=== PATIENT | male | born 1950 | race Caucasian/White ===

== ENCOUNTER 2017-09-08 21:01 | Emergency (ER) | payer MEDICARE, MEDICAID ==
[~2017-09-08] VITALS: Ht 160 cm; Wt 91.6 kg
[2017-09-08 21:35] LABS: BASOPHILS # (AUTO) 0.1 K/uL (0.0-8.0); BASOPHILS % (AUTO) 1.5 % (0.0-2.0); EOSINOPHILS % (AUTO) 0.5 % (0.0-7.0); HEMATOCRIT 32.5 % (36.7-47.1); HEMOGLOBIN 10.5 g/dL (12.5-16.3); LYMPHOCYTES # (AUTO) 0.8 K/uL (20.0-40.0); MEAN CORPUSCULAR HEMOGLOBIN 31.1 uug (23.8-33.4); MEAN CORPUSCULAR HGB CONC 32 g/dL (32.5-36.3); MEAN CORPUSCULAR VOLUME 96.2 fL (73.0-96.2); MONOCYTES # (AUTO) 0.7 K/uL (2.0-10.0); MONOCYTES % (AUTO) 10.3 % (0.0-11.0); NEUTROPHILS # (AUTO) 5.2 K/uL (1.8-8.9); NEUTROPHILS % (AUTO) 75.7 % (38.5-71.5); PLATELET COUNT (AUTO) 193 K/uL (152-348); RED BLOOD CELL COUNT(AUTO) 3.38 MIL/uL (4.06-5.63); WHITE BLOOD COUNT (AUTO) 6.9 K/uL (3.6-10.2)
[2017-09-08 21:47] LABS: CARBON DIOXIDE 32 mmol/L (21-32); CHLORIDE 99 mmol/L (98-107); CREATININE 4.5 mg/dL (0.6-1.3); GLUCOSE 139 mg/dL (74-106); POTASSIUM 4.2 mmol/L (3.5-5.1); UREA NITROGEN, BLOOD 45 mg/dL (7-18)
[2017-09-08 21:55] LABS: ETHANOL < 3 MG/DL (0-0)
[2017-09-08 22:01] LABS: THYROID STIMULATING HORMONE 1.387 mIU/mL (0.358-3.740)
[2017-09-08 22:03] LABS: ALANINE AMINOTRANSFERASE 28 U/L (16-63); ALKALINE PHOSPHATASE 92 U/L (50-136); ASPARTATE AMINOTRANSFERASE 22 U/L (15-37); BILIRUBIN,DIRECT 0.4 mg/dL (0.0-0.2); BILIRUBIN,TOTAL 0.7 mg/dL (0.2-1.0); TOTAL PROTEIN, SERUM 6.8 g/dL (6.4-8.2)
[2017-09-08 22:10] LABS: ACETAMINOPHEN < 2.0 ug/mL (10-30)
[2017-09-08] MEDS ORDERED: CHOL50004 PO (22:25)
[2017-09-08] MEDS ORDERED: NITR0.4T SL (22:25)
[2017-09-08] MEDS ORDERED: KETO10DR3 EACHEYE (22:25)
[2017-09-08] MEDS ORDERED: TRAZ-144 PO (22:25)
[2017-09-08] MEDS ORDERED: BISA-79 PO (22:25)
[2017-09-08] MEDS ORDERED: ATOR20TA PO (22:25)
[2017-09-08] MEDS ORDERED: POLY15DR27 OP (22:25)
[2017-09-08] MEDS ORDERED: TAMS-3 PO (22:25)
[2017-09-08] MEDS ORDERED: HYDR-3024 PO (22:25)
[2017-09-08] MEDS ORDERED: APIX5TAB PO (22:25)
[2017-09-08] MEDS ORDERED: LIDO30AD10 TD (22:25)
[2017-09-08] MEDS ORDERED: METO200T49 PO (22:25)
[2017-09-08] MEDS ORDERED: ASPI81TA31 PO (22:25)
[2017-09-08] MEDS ORDERED: SERT50TA PO (22:25)
[2017-09-08] MEDS ORDERED: VALS40TA4 PO (22:25)
[2017-09-08] MEDS ORDERED: BLOO-360 IN (22:25)
[2017-09-08] MEDS ORDERED: INSU100V7 SQ (22:25)
[2017-09-08] MEDS ORDERED: HYDR-3326 PO (22:25)
[2017-09-08] MEDS ORDERED: SEVE0.8P PO (22:25)
[2017-09-08] MEDS ORDERED: DILT180C66 PO (22:25)
[2017-09-08] MEDS ORDERED: CALC0.253 PO (22:25)
[2017-09-08] MEDS ORDERED: IPRA0.2S6 NEB (22:25)
[2017-09-08] MEDS ORDERED: ACET-2154 PO (22:25)
--- NOTE | 2017-09-08 22:28 | NUR ---
PT CLEARED TO RETURN HOME BY ODILIA LIRIANO.
--- NOTE | 2017-09-08 22:32 | NUR ---
CALLED TO ARRANGE TRANSPORT HOME. SPOKE WITH DYLLAN AT [facility]. ETA MIDNIGHT.
--- NOTE | 2017-09-08 23:13 | NUR ---
PT IN BED WATCHING TV. PT GIVEN SANDWICH AND BEVERAGE. PT QUIETLY WAITING FOR AMBULANCE BACK HOME. NO SIGNS OF DISTRESS WITNESSED AT THIS TIME.
--- NOTE | 2017-09-09 00:22 | NUR ---
CALLED AGAIN TO ARRANGE TRANSPORT HOME. ETA [id number]. SPOKE WITH SEYMOUR AT [facility]
--- NOTE | 2017-09-09 00:52 | NUR ---
PT TAKEN BACK TO [facility] BY SILVIO RYAN WITH AMBULNZ UNIT [id number]. SPOKE WITH PROCEDURES NURSE AT [facility], JAYLENE, TOLD HER THAT PT VINCENT WOULD BE RETURNING SHORTLY.
[2017-09-09 00:57] VITALS: BP 139/88
== END 2017-09-09 00:42 | disposition home or self-care (01) ==
LOC: ER 21:01
DX: I50.9 Heart failure, unspecified (principal); I13.2 Hypertensive heart and chronic kidney disease with heart failure and with stage 5 chronic kidney disease, or end stage renal disease; E11.22 Type 2 diabetes mellitus with diabetic chronic kidney disease; N18.6 End stage renal disease; Z13.89 Encounter for screening for other disorder; J44.9 Chronic obstructive pulmonary disease, unspecified; Z88.8 Allergy status to other drugs, medicaments and biological substances; Z91.041 Radiographic dye allergy status
CPT/HCPCS: 36415; 84443; 85025; 93005; A4663; G0480; G0480-TC